=== PATIENT | female | born 1955 | race Caucasian/White ===

== ENCOUNTER 2017-02-27 09:07 | Emergency (ER) | payer MEDICARE, OTHER ==
[2017-02-27] MEDS ORDERED: Ketorolac INJ* 60 MG/2 ML VIAL IM ONE (10:01)
--- NOTE | 2017-02-27 10:04 | UC ---
Lower Extremity/Ankle HPI - HPI Summary HPI Summary: britt did a full day of hard garden work, woke up this moring with right hip and knee pain, dull ache throughout the whole leg. - History of Current Complaint Chief Complaint: UCLowerExtremity Stated Complaint: RIGHT LEG PAIN Time Seen by Provider: 02/27/17 09:49 Hx Obtained From: Patient ?: No Onset/Duration: Sudden Onset, Lasting Hours Severity Initially: Mild Severity Currently: Moderate Aggravating Factor(s): Standing, Ambulation Alleviating Factor(s): Nothing Able to Bear Weight: Yes - Allergies/Home Medications Allergies/Adverse Reactions: Allergies Allergy/AdvReac Type Severity Reaction Status Date / Time No Known Allergies Allergy Verified 02/27/17 09:37 Home Medications: Home Medications Blood Pressure 1 tab DAILY 02/27/17 [History] Hydrochlorothiazide TAB* [Hydrodiuril TAB*] 1 tab DAILY 02/27/17 [History Confirmed 02/27/17] Lisdexamfetamine Dimesylate [Vyvanse] 1 tab DAILY 02/27/17 [History Confirmed ] Pantoprazole Sodium [Protonix] 40 mg DAILY 02/27/17 [History Confirmed 02/27/17] Zolpidem TAB* [Ambien*] 12.5 mg QPM 02/27/17 [History Confirmed 02/27/17] PMH/Surg Hx/FS Hx/Imm Hx Previously Healthy: Yes - Surgical History Surgical History: Yes Surgery Procedure, Year, and Place: eye surgery, gastric bypass 2006. hysterectomy. tonsillectomy - Family History Known Family History: Negative: Cardiac Disease, Hypertension - Social History Alcohol Use: None Substance Use Type: None Smoking Status (MU): Never Smoked Tobacco Review of Systems Constitutional: Negative Skin: Negative Eyes: Negative ENT: Negative Respiratory: Negative Cardiovascular: Negative Gastrointestinal: Negative Genitourinary: Negative Motor: Negative Neurovascular: Negative Musculoskeletal: Arthralgia, Decreased ROM, Myalgia Neurological: Negative Psychological: Negative All Other Systems Reviewed And Are Negative: Yes Physical Exam Triage Information Reviewed: Yes Appearance: Well-Appearing, Well-Nourished, Pain Distress Vital Signs: Initial Vital Signs Temp 97.5 F 02/27/17 09:42 Pulse 77 02/27/17 09:42 Resp 18 08/06/17 09:42 BP 94/60 02/27/17 09:42 Pulse Ox 99 02/27/17 09:42 Vital Signs Reviewed: Yes Eye Exam: Normal ENT Exam: Normal Dental Exam: Normal Neck exam: Normal Respiratory Exam: Normal Respiratory: Positive: Chest non-tender, Lungs clear, Normal breath sounds Cardiovascular Exam: Normal Cardiovascular: Positive: RRR, No Murmur, Pulses Normal Abdominal Exam: Normal Musculoskeletal: Positive: No Edema, ROM Limited @ - in right knee and hip Neurological Exam: Normal Psychological Exam: Normal Skin Exam: Normal Lower Extremity Course/Dx - Course Course Of Treatment: hx obtained, exam performed ,meds reviewed, ROM assessed, Toradol given with good effect. educated on Rest, stretching - Differential Dx/Diagnosis Differential Diagnosis/HQI/PQRI: Contusion, Dislocation, Fracture (Closed), Sprain, Strain, Tendonitis Provider Diagnoses: right hamstring strain, knee pain Discharge - Discharge Plan Condition: Stable Disposition: HOME Patient Education Materials: Muscle Strain (ED) Additional Instructions: 1. rest use the pool to increase mobility and stretching 2. Aleve as neede for pain 3. Follow up as needed.
[2017-02-27 10:07] VITALS: BP 94/60
== END 2017-02-27 10:45 | disposition home or self-care (01) ==
LOC: UCCORT 09:07
DX: S76.811A Strain of other specified muscles, fascia and tendons at thigh level, right thigh, initial encounter (principal); M25.561 Pain in right knee; X50.0XXA Overexertion from strenuous movement or load, initial encounter; Y93.H2 Activity, gardening and landscaping; Z90.710 Acquired absence of both cervix and uterus; Z98.84 Bariatric surgery status
CPT/HCPCS: 96372; 99212; G0463; J1885

== ENCOUNTER 2018-12-25 06:22 | Day surgery (SDC) | payer MEDICARE, OTHER ==
[~2018-12-25 06:22] MED LIST: Buffered Lidocaine 1% SYRIN* 1 ML/SYRINGE INTRADERM ONE; Dexamethasone TAB* 4 MG PO ONE; DiMENhydriNATE IV* 50 MG/ML VIAL IV PUSH PRN; Famotidine IV* 10 MG/ML 2 ML (20 mg) IV ONE; Morphine 4 MG/ML VIAL (1 ml) 4 MG/ML VIAL IV PRN; Naloxone* 0.4 MG/ML 1 ML VIAL IV PRN; Ondansetron INJ* 2 MG/ML VIAL ONE; PROCHLORPERAZINE INJ 5 MG/ML 2 ML VIAL IV PRN; Scopolamine 1.5 mg* PATCH TRANSDERM PRN; fentaNYL* 50 MCG/ML 2 ML VIAL (100 MCG VIAL) IV PRN
[2018-12-25] MEDS ORDERED: Ondansetron ODT TAB* 4 MG ONE (06:41)
[2018-12-25] MEDS ORDERED: Famotidine IV* 10 MG/ML 2 ML (20 mg) ONE (06:41)
[2018-12-25] MEDS ORDERED: Dexamethasone TAB* 4 MG ONE (06:41)
[2018-12-25] MEDS ORDERED: ceFAZolin 2 GM PREMIX in ORs 2 GM/50 ML BAG ONE (06:42)
[2018-12-25] MEDS: Lactated Ringers 1000 ML Bag* 1,000 ML IV SCH ×2 (06:54→06:55)
[2018-12-25] MEDS ORDERED: KETAMINE HCL* 50 MG/ML 10 ML VIAL ONE (07:16)
[2018-12-25] MEDS ORDERED: fentaNYL* 50 MCG/ML 2 ML VIAL (100 MCG VIAL) ONE (07:16)
[2018-12-25] MEDS ORDERED: Midazolam* 1 MG/ML 5 ML VIAL (5 MG) ONE (07:17)
[2018-12-25] MEDS ORDERED: Lidocaine 1% MPF wEPI 200,000* 30 ML SDV ONE (07:38)
[2018-12-25] MEDS ORDERED: Bupivacaine 0.25% SDV* 30 ML ONE (07:38)
[2018-12-25] MEDS ORDERED: ROPIVACAINE 5 MG/ML 30 ML BTL (0.5%) ONE (07:43)
[2018-12-25] MEDS ORDERED: Ropivacaine* 2 MG/ML 20 ML VIAL (0.2%) ONE (07:44)
[2018-12-25] MEDS ORDERED: Ketorolac INJ* 30 MG/ML 1 ML VIAL ONE (08:07)
[2018-12-25] MEDS ORDERED: EPHEDrine (Pressors)* 50 MG/ML VIAL ONE (08:07)
[2018-12-25] MEDS ORDERED: Lidocaine 2% PF * 5 ML VIAL ONE (08:07)
[2018-12-25] MEDS ORDERED: Propofol* 10 MG/ML 20 ML BTL ONE (08:07)
[2018-12-25] MEDS ORDERED: DiMENhydriNATE IV* 50 MG/ML VIAL ONE (09:03)
[2018-12-25] MEDS ORDERED: PROCHLORPERAZINE INJ 5 MG/ML 2 ML VIAL ONE (09:18)
[2018-12-25] MEDS ORDERED: oxyCODONE/Acetamin 5/325 MG* TAB ONE (09:30)
[2018-12-25 09:33] VITALS: BP 141/84
--- NOTE | 2018-12-25 11:56 | OP ---
CC: PCP OPERATIVE REPORT: DATE OF OPERATION: 12/25/18 DATE OF : 59 SURGEON: Belinda Landers MD HORSESHOER: None available. PRE-OP DIAGNOSIS: Right knee bucket handle lateral meniscus tear and arthritis as well as ganglion about the patellar tendon. POST-OP DIAGNOSIS: Right knee bucket handle lateral meniscus tear and arthritis as well as ganglion about the patellar tendon, loose body. OPERATIVE PROCEDURE: Right knee arthroscopy with: 1. Chondroplasty of the medial femoral condyle. 2. Removal of loose body about 1 cm x1. 3. Partial lateral meniscectomy. 4. Arthroscopic debridement of ganglion cyst in the fat pad. COMPLICATIONS: None. ESTIMATED BLOOD LOSS: Minimal. INDICATIONS: Stephani Hernandez is a 63-year-old female who presented with blocked motion and she was diagnosed with an acute pain. She is diagnosed with a bucket handle meniscus tear as well as some arthritis and ganglion cyst. After an extensive discussion of risks and benefits of surgery versus nonoperative treatment, she has elected to proceed with surgical treatment. Risks and benefits were discussed and included but not limited to bleeding, infection, damage to nerves, vessels, surrounding structures, wound nonhealing, persistent pain, need for further surgery, scarring, stiffness, incomplete relief of symptoms, risks of anesthesia as well as scarring, stiffness, risk of DVT. She has elected to proceed. DESCRIPTION OF PROCEDURE: The patient was greeted in the preoperative area by the attending surgeon. Correct extremity was marked and consent was confirmed. The patient was brought back to the operating suite, where she was placed in supine position on the operating table. She then underwent general anesthesia and LMA intubation after which an unsterile tourniquet was placed high on the proximal high. Lateral post was positioned. Right leg was then prepped and draped in the usual sterile fashion beginning with chlorhexidine soap, scrub, and alcohol wipe and a final prep of ChloraPrep. After appropriate surgical pause indicating side, site, procedure, administration of antibiotics, the knee was intraarticularly injected with 1% lidocaine with epi. The lateral portal was made using an 11 blade. The scope was introduced into the joint. Joint was examined. There was an obvious displaced bucket handle tear of the lateral meniscus. There was significant synovitis. The ACL and PCL were intact. The scope was brought into the medial compartment and there was a large loose body about 1 cm. The anteromedial portal was then made and a large incision was made to accommodate removal of this loose body. We positioned this so that we could also take care of the meniscus through the same portal. The loose body was removed. The medial meniscus was intact. The medial compartment had grade 2 and 3 changes, and about grade 2 changes of unstable flaps at the tibial plateau. A chondrroplasty of the medial compartment was done to remove the unstable flaps. The knee was then placed in full extension. There was significant synovitis, which was removed from the lateral and medial aspects of the plica. The patellofemoral joint had some unstable fraying, grade 2 and 3 changes. Trochlea had areas of grade 3 changes. The scope was positioned in [id number] position and the meniscus was then gently reduced. This was thick woody type of tissue and had no evidence oflood supply and because of the patient's age and arthritis, decision was made to do meniscectomy. The biters and claudia were then used to remove the meniscus, which ended up being at least 60% of the meniscus and a small rim was left at the end. Once this was complete, the knee was thoroughly lavaged and removed any loose debris. At this point, attention was directed to the fat pad. Based on the preoperative MRI findings, the cyst was found to be in the fat pad anteromedially. Therefore , first with needle localization, to percutaneously try to identify the cyst. Once there was cyst fluid that released, the shaver was used to debride the cyst. The electrocautery device was used to maintain hemostasis, and therefore removed the stalk from the cyst. Care was taken to not damage the patellar tendon, which was visible. Once this was complete, the knee was taken through full range of motion. The wounds were copiously irrigated with sterile saline. The knee was sterilely lavaged and the portals were closed with 3-0 nylon and sterile dressings were applied. The portals were closed and injected with 0.2% ropivacaine. Sterile dressings were applied. Cryo/Cuff was applied. She was awoken from anesthesia and transferred to the PACU in stable condition. POSTOPERATIVE PLAN: She will be nonweightbearing. She will be discharged on pain medication. DVT prophylaxis was considered but deferred due to no previous personal or family history. I will see the patient back in 10 to 14 days. She will be weightbearing as tolerated with crutches. [id number]/[facility] #: [id number] MTDD
[2018-12-28] MEDS ORDERED: Scopolamine PATCH Remove* 1 NOTE MISC PATCH OFF ONE (05:48)
== END 2018-12-25 09:47 | disposition home or self-care (01) ==
LOC: OREAST 06:22
PROVIDERS: ATTEND Orthopaedic Surgery
DX: S83.251A Bucket-handle tear of lateral meniscus, current injury, right knee, initial encounter (principal); M67.461 Ganglion, right knee; M17.11 Unilateral primary osteoarthritis, right knee; X58.XXXA Exposure to other specified factors, initial encounter; Y92.9 Unspecified place or not applicable; I10 Essential (primary) hypertension; E78.5 Hyperlipidemia, unspecified
CPT/HCPCS: 88304; A9270-GY; J0690; J0780; J1240; J1885; J2001; J2250; J2704; J2795; J3010; J3490; J8540

== ENCOUNTER 2019-11-22 15:39 | Emergency (ER) | payer MEDICARE, OTHER ==
[2019-11-22 16:27] VITALS: BP 132/86
== END 2019-11-22 17:16 | disposition home or self-care (01) ==
LOC: UCCORT 15:39